=== PATIENT | female | born 1965 | race Caucasian/White ===

== ENCOUNTER 2017-06-16 18:36 | Emergency (ER) | payer SELFPAY ==
[2017-06-16 18:50] VITALS: BP 138/98
[2017-06-16 19:16] LABS: CHLORIDE,CL 114 mmol/L (98-110); SODIUM,NA 145 mmol/L (136-146)
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
--- NOTE | 2017-06-19 11:47 | CT ---
EXAM DATE: 06/16/17 PATIENT'S AGE: 52 Patient: MYESHA RODRIGUEZ Facility: [place], [place] Site . Site : 1965 Study: CT Head [id number]/21/2017 7:11:43 PM Ordering Physician: Doctor Escalera Final Report: INDICATION: pain CT HEAD WITHOUT CONTRAST TECHNIQUE: Multiple axial CT images were performed through the head without intravenous contrast administration. COMPARISON: 12/30/[address] FINDINGS: No acute intracranial hemorrhage is identified. No extra-axial collections are evident and there is no mass effect or midline shift. Ventricles are normal in size and configuration. Brain parenchyma appears normal with unremarkable sung-white differentiation. Osseous structures are within normal limits and no fractures are seen. Included portions of the paranasal sinuses and mastoid air cells are normally aerated. IMPRESSION: Normal non-contrast head CT. CLARK OREILLY MD [employer] Dictated by: Mark Oreilly MD @ 06/16/2017 19:26:30 (Electronic Signature) Report Signed by Proxy. [facility]
--- NOTE | 2017-06-19 11:48 | CT ---
EXAM DATE: 06/16/17 PATIENT'S AGE: 52 Patient: MYESHA RODRIGUEZ Facility: [place], [place] Site . Site : 1965 Study: CT Spine Cervical [id number]/21/2017 7:12:19 PM Ordering Physician: Doctor Escalera Final Report: INDICATION: pain CT CERVICAL SPINE WITHOUT CONTRAST TECHNIQUE: Multidetector axial CT imaging was performed through the cervical spine, without contrast. Sagittal and coronal reconstructions were generated. FINDINGS: No acute fractures are identified. Multilevel degenerative change is noted in the cervical spine, including degenerative disc disease at C3-4 through C6-7 and scattered mild facet joint arthrosis. Osseous alignment is within normal limits and no subluxation is seen. Prevertebral soft tissues are unremarkable. Included portions of the airway and lung apices are within normal limits. IMPRESSION: 1. No fracture, subluxation, or other acute finding identified. 2. Cervical spondylosis, as noted above. CLARK OREILLY MD [employer] Dictated by: Mark Oreilly MD @ 06/16/2017 19:30:00 (Electronic Signature) Report Signed by Proxy. [facility]
== END 2017-06-16 19:30 | disposition left against medical advice (07) ==
LOC: MW.ED 18:36
DX: M54.5 Low back pain (principal); F10.129 Alcohol abuse with intoxication, unspecified; I10 Essential (primary) hypertension; F32.9 Major depressive disorder, single episode, unspecified; F17.210 Nicotine dependence, cigarettes, uncomplicated; Z79.899 Other long term (current) drug therapy
CPT/HCPCS: 36415; 72125; 80053; 85025; 99285; G0480; 70450; 70450-26; 99282

== ENCOUNTER 2018-02-17 15:19 | Emergency (ER) | payer OTHER ==
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
[2018-02-17 16:53] VITALS: BP 183/102
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
== END 2018-02-17 16:50 | disposition home or self-care (01) ==
LOC: MW.ED 15:19
DX: S29.011A Strain of muscle and tendon of front wall of thorax, initial encounter (principal); F17.210 Nicotine dependence, cigarettes, uncomplicated; V89.2XXA Person injured in unspecified motor-vehicle accident, traffic, initial encounter
CPT/HCPCS: 71045; 71045-26; 99283; 99284

== ENCOUNTER 2019-02-28 23:47 | Emergency (ER) | payer MEDICAID ==
[2019-03-01] MEDS ORDERED: Ketorolac 60 MG/2 ML SDV IM ONE (00:06)
--- NOTE | 2019-03-01 00:13 | EDM.PDOC ---
ED HPI GENERAL MEDICAL PROBLEM - General Chief Complaint: General Stated Complaint: NUMBNESS IN RT HAND Time Seen by Provider: 02/28/19 23:53 - History of Present Illness INITIAL COMMENTS - FREE TEXT/NARRATIVE: HISTORY AND PHYSICAL: History of present illness: The patient is a 53-year-old female who presents with complaints of numbness and her right hand that started on her pinky finger and is now progressing to the remainder of her fingers and hand that started February 09-1/2 weeks ago. The patient denies any direct trauma to the area and says that this has been a gradual onset and it is associated with pain sometimes with certain movements. There is no weakness in the hand and there is no temperature changes that she has noticed and now the pain is starting to migrate to her forearm which is worrisome to her. She has no proximal neck pain or proximal right upper extremity complaints. She has no systemic issues such as fever chills chest pain or shortness of breath abdominal pain vomiting or diarrhea. The patient denies any weakness in any of her extremities. She is not lightheaded or dizzy and has been having normal bowel movements and normal urine output. The patient is also noted to be hypertensive here in the ED which she says she is aware of but she does not take any medications and she has not seen her provider for this. This information is not new or different to her but she has not sought follow-up of it. No swelling to her lower extremities or her hands Review of systems: As per history of present illness and below otherwise all systems reviewed and negative. Past medical history: As per history of present illness and as reviewed below otherwise noncontributory. Surgical history: As per history of present illness and as reviewed below otherwise noncontributory. Social history: No reported history of drug or alcohol abuse. Family history: As per history of present illness and as reviewed below otherwise noncontributory. Physical exam: HEENT: Atraumatic, normocephalic, negative for conjunctival pallor or scleral icterus, mucous membranes moist, throat clear, neck supple, nontender, trachea midline. Lungs: Clear to auscultation, breath sounds equal bilaterally, chest nontender. Heart: S1S2, regular rate and rhythm no overt murmurs. Abdomen: Soft, nondistended, nontender. Negative for masses or hepatosplenomegaly. Negative for costovertebral tenderness. Pelvis: Stable nontender. Genitourinary: Deferred. Rectal: Deferred. Extremities: Atraumatic, negative for cords or calf pain. Neurovascular unremarkable. Full range of motion without defects or deficits. More specifically at the right hand wrist and forearm there are no palpable bony deformities defects soft tissue changes erythema or ecchymosis. At the wrist specifically there is no soft tissue swelling and radial and ulnar pulses are palpable and intact. Cap refill in the hand is normal. The patient can make a fist and interossei are all intact and strong. The patient has a positive Phalen sign in fact says that it elicits strong pain and discomfort when she does that. There is also tingling in her fingers. Her arm proximally as well as the elbow bicep tricep and shoulder area are all intact without soft tissue swelling compartment changes defects or deformities. When I palpate the wrist and hand I cannot elicit the tenderness but when I try to flex or extend her at the wrist passively or actively she says the pain is exacerbated. Please note that when I touch the patient's hand and wrist as well as all of her digits she is able to feel me. Neuro: Awake, alert, oriented. Cranial nerves II through XII unremarkable. Cerebellum unremarkable. Motor and sensory unremarkable throughout. Exam nonfocal. Diagnostics: None Therapeutics: Toradol IM, Velcro wrist splint I discussed with the patient that she would likely need to follow-up with our hand specialist as she is exhibiting signs of carpal tunnel syndrome. We will give her a Velcro splint and advised her on how to use that as well as taking [id number] anti-inflammatories for pain management. I also will place her on the expanded follow-up list for evaluation of her blood pressure. She is currently exhibiting no signs of end organ damage and says that her hypertension is not new she just has not addressed it and I told her that that was very important to do so. She states understanding. Impression: Right hand paresthesia subacute early carpal tunnel Hypertension asymptomatic Definitive disposition and diagnosis as appropriate pending reevaluation and review of above. right hand Pain Score (Numeric/FACES): 9 - Related Data Allergies Allergy/AdvReac Type Severity Reaction Status Date / Time No Known Allergies Allergy Verified 03/01/19 00:02 Home Meds: Home Meds . [No Known Home Meds] 02/17/18 [History] Past Medical History - Past Health History Medical/Surgical History: Denies Medical/Surgical History HEENT History: Reports: Impaired Vision, Other (See Below) Other HEENT History: wears glasses Cardiovascular History: Reports: Hypertension Other Cardiovascular History: pt states she's no longer taking her HTN med Respiratory History: Reports: Bronchitis, Recurrent Gastrointestinal History: Reports: None Genitourinary History: Reports: None [employer] History: Reports: Musculoskeletal History: Reports: None Neurological History: Reports: Other (See Below) Other Neuro History: headache from fall Psychiatric History: Reports: Depression Endocrine/Metabolic History: Reports: None Hematologic History: Reports: None Immunologic History: Reports: None Oncologic (Cancer) History: Reports: None Dermatologic History: Reports: None - Infectious Disease History Infectious Disease History: Reports: Shingles - Past Surgical History HEENT Surgical History: Reports: None Cardiovascular Surgical History: Reports: None Respiratory Surgical History: Reports: None Female Surgical History: Reports: Tubal Ligation Social & Family History - Family History Family Medical History: Noncontributory - Tobacco Use Smoking Status *Q: Current Every Day Smoker Years of Tobacco use: 25 Packs/Tins Daily: 1 - Caffeine Use Caffeine Use: Reports: Coffee - Recreational Drug Use Recreational Drug Use: No ED ROS GENERAL - Review of Systems Review Of Systems: ROS reveals no pertinent complaints other than HPI. ED EXAM, GENERAL - Physical Exam Exam: See Below (see dictation) Course - Vital Signs Last Recorded V/S: Last Vital Signs Temp 35.5 C 02/28/19 23:50 Pulse 70 02/28/19 23:50 Resp 18 02/28/19 23:50 BP 208/105 H 02/28/19 23:50 Pulse Ox 94 L 02/28/19 23:50 - Orders/Labs/Meds Orders: Active Orders 24 hr Category Date Time Status Ketorolac [Toradol] Med 03/01/19 00:06 Once 60 mg IM ONETIME ONE DME for Discharge [COMM] Stat Oth 03/01/19 00:07 Ordered Departure - Departure Time of Disposition: 00:13 Disposition: Home, Self-Care 01 Condition: Good Clinical Impression: Paresthesia of hand Qualifiers: Laterality: right Qualified Code(s): R20.2 - Paresthesia of skin Carpal tunnel syndrome Qualifiers: Laterality: right Qualified Code(s): G56.01 - Carpal tunnel syndrome, right upper limb Hypertension Qualifiers: Hypertension type: unspecified secondary hypertension Qualified Code(s): I15.9 - Secondary hypertension, unspecified; I15 - Secondary hypertension - Discharge Information Referrals: PCP,None [Primary Care Provider] - Additional Instructions: The following information is given to patients seen in the emergency department who are being discharged to home. This information is to outline your options for follow-up care. We provide all patients seen in our emergency department with a follow-up referral. The need for follow-up, as well as the timing and circumstances, are variable depending upon the specifics of your emergency department visit. If you don't have a primary care physician on staff, we will provide you with a referral. We always advise you to contact your personal physician following an emergency department visit to inform them of the circumstance of the visit and for follow-up with them and/or the need for any referrals to a consulting specialist. The emergency department will also refer you to a specialist when appropriate. This referral assures that you have the opportunity for followup care with a specialist. All of these measure are taken in an effort to provide you with optimal care, which includes your followup. Under all circumstances we always encourage you to contact your private physician who remains a resource for coordinating your care. When calling for followup care, please make the office aware that this follow-up is from your recent emergency room visit. If for any reason you are refused follow-up, please contact the [facility] emergency department at and ask to speak to the emergency department charge nurse. [facility] Primary care- Internal Medicine and Family [facility] [address] [place] [id number] [facility] Specialty clinic-Plastic Surgery and Hand Surgery Professional [facility] [address] [place] [phone] Please call and schedule follow-up appointments with primary care regarding her blood pressure and its management going forward as well as our hand specialist. Wear the splint you have been given at all times during the day and remove at sleep times. Ice and elevate the hand and wrist after activities and use over- the-counter ibuprofen/Motrin for pain management. Return to ER as needed and as discussed - My Orders Last 24 Hours: My Active Orders 03/01/19 00:06 Ketorolac [Toradol] 60 mg IM ONETIME ONE 03/01/19 00:07 DME for Discharge [COMM] Stat - Assessment/Plan Last 24 Hours: My Active Orders 03/01/19 00:06 Ketorolac [Toradol] 60 mg IM ONETIME ONE 03/01/19 00:07 DME for Discharge [COMM] Stat
[2019-03-01 00:30] VITALS: BP 170/107
== END 2019-03-01 00:30 | disposition home or self-care (01) ==
LOC: MW.ED 23:47
DX: G56.01 Carpal tunnel syndrome, right upper limb (principal); I15.9 Secondary hypertension, unspecified; I10 Essential (primary) hypertension; F17.210 Nicotine dependence, cigarettes, uncomplicated; Z98.51 Tubal ligation status
CPT/HCPCS: 96372; 99283; J1885

== ENCOUNTER 2024-02-16 22:06 | Emergency (ER) | payer MEDICAID ==
[2024-02-16 22:38] LABS: BASOPHILS ABSOLUTE AUTO 0.04 K/uL (0.00-0.20); BASOPHILS PERCENT AUTO 0.5 % (0.0-1.0); EOSINOPHILS ABSOLUTE AUTO 0.14 K/uL (0.00-0.45); EOSINOPHILS PERCENT AUTO 1.9 % (0.0-6.0); HEMATOCRIT 44.7 % (37.0-47.0); IMMATURE GRAN ABSOLUTE AUTO 0.02 K/uL (0.00-0.05); IMMATURE GRAN PERCENT AUTO 0.3 % (0.0-0.4); LYMPHOCYTES PERCENT AUTO 28.3 % (24.0-44.0); MEAN CORPUSCULAR HEMOGLOBIN 29.8 pg (28.0-32.0); MEAN CORPUSCULAR HGB CONC 33.6 g/dL (32.0-36.0); MEAN CORPUSCULAR VOLUME 88.9 fL (83.0-99.0); MEAN PLATELET VOLUME 10.1 fL (9.4-12.3); MONOCYTES ABSOLUTE AUTO 0.47 K/uL (0.00-0.80); MONOCYTES PERCENT AUTO 6.3 % (0.0-8.0); NEUTROPHILS ABSOLUTE AUTO 4.64 K/uL (1.80-7.70); NEUTROPHILS PERCENT AUTO 62.7 % (41.0-71.0); PLATELET COUNT,PLT 191 K/uL (150-400); RED BLOOD CELL COUNT 5.03 M/uL (4.10-5.30); WHITE BLOOD CELL COUNT,WBC 7.41 K/uL (3.9-11.3)
[2024-02-16 23:09] LABS: A/G RATIO 1.2 (0.9-1.6); ALANINE AMINOTRANSFERASE,ALT 15 IU/L (14-63); ALBUMIN 3.9 g/dL (3.4-5.0); ALKALINE PHOSPHATASE 82 U/L (46-116); ASPARTATE AMNIOTRANSFERASE,AST 12 IU/L (15-37); BILIRUBIN TOTAL 0.5 mg/dL (0.2-1.0); BLOOD UREA NITROGEN,BUN 18 mg/dL (7.0-18.0); CALCIUM 9.6 mg/dL (8.5-10.1); CARBON DIOXIDE,CO2 26.4 mmol/L (21.0-32.0); CHLORIDE,CL 106 mmol/L (98-107); CREATININE 1.1 mg/dL (0.6-1.0); GLUCOSE RANDOM 80 mg/dL (74-106); POTASSIUM,K 4.7 mmol/L (3.5-5.1); PROTEIN TOTAL,TP 7.2 g/dL (6.4-8.2); SODIUM,NA 143 mmol/L (136-145)
[2024-02-16 23:10] LABS: ESTIMATED GFR 58 mL/min (>60); ETHANOL BLOOD MEDICAL < 3.0 mg/dL
[2024-02-16] MEDS: Aspirin 81 MG Tab.Chew PO ONE (23:42)
[2024-02-16] MEDS: Sodium Chloride 0.9% 2.5 ML Syringe FLUSH PRN (23:43)
[2024-02-16] MEDS: Sodium Chloride 0.9% 10 ML Syringe FLUSH PRN (23:43)
[2024-02-17] MEDS: Acetaminophen 325 MG Tab PO ONE (00:31)
[2024-02-17 00:45] VITALS: BP 168/94; PULSE 73
== END 2024-02-17 00:43 | disposition home or self-care (01) ==
LOC: MW.ED 22:06
DX: R07.89 Other chest pain (principal); I10 Essential (primary) hypertension; I25.2 Old myocardial infarction
CPT/HCPCS: 36415; 71046; 80053; 80307; 84484; 85025; 93005; 99285; A9270; J3490; 93010; 99283

== ENCOUNTER 2025-06-11 21:44 | Emergency (ER) | payer MEDICAID ==
[2025-06-11 22:52] VITALS: BP 138/96; PULSE 75
== END 2025-06-11 22:51 ==
LOC: MW.ED 21:44
DX: I15.9 Secondary hypertension, unspecified (principal); R06.2 Wheezing; F17.210 Nicotine dependence, cigarettes, uncomplicated
CPT/HCPCS: 99283; A9270